=== PATIENT | male | born 1995 | race Caucasian/White ===

== ENCOUNTER → 2019-12-11 | Outpatient (CLI) | payer BC ==
[2019-12-11 12:22] LABS: BASOPHILS % (AUTO) 0 % (0-10); EOSINOPHILS % (AUTO) 0 % (0-10); HEMATOCRIT 46 % (40-54); HEMOGLOBIN 15.6 G/DL (13.3-17.7); LYMPHOCYTES % (AUTO) 13 % (12-44); MEAN CORPUSCULAR HEMOGLOBIN 28 PG (25-34); MEAN CORPUSCULAR HGB CONC 34 G/DL (32-36); MEAN CORPUSCULAR VOLUME 83 FL (80-99); MEAN PLATELET VOLUME 9.5 FL (7.4-10.4); MONOCYTES % (AUTO) 9 % (0-12); NEUTROPHILS # (AUTO) 9.5 X 10^3 (1.8-7.8); NEUTROPHILS % (AUTO) 78 % (42-75); PLATELET COUNT 291 10^3/uL (130-400); WHITE BLOOD COUNT 12.3 10^3/uL (4.3-11.0)
[2019-12-11 12:23] LABS: LYMPHOCYTES # (AUTO) 1.6 X 10^3 (1.0-4.0); MONOCYTES # (AUTO) 1.1 X 10^3 (0.0-1.0)
--- NOTE | 2019-12-11 12:42 | Diagnostic Imaging Report ---
PROCEDURE: CT abdomen and pelvis without contrast. TECHNIQUE: Multiple contiguous axial images were obtained through the abdomen and pelvis without the use of intravenous contrast. Auto Exposure Controls were utilized during the CT exam to meet ALARA standards for radiation dose reduction. INDICATION: Abdominal pain. COMPARISON: None. FINDINGS: The included portions of the lung bases are clear. CT ABDOMEN: A normal appendix is identified. The small bowel loops are nondistended. The kidneys, adrenal glands, spleen, pancreas, and liver have an unremarkable noncontrast CT appearance. There is no loculated fluid collection, free fluid, or free air within the abdomen. No abnormal mesenteric or retroperitoneal adenopathy is seen. The osseous structures show no acute abnormalities. CT PELVIS: The urinary bladder is unopacified and nondistended. No calculi are seen within the urinary bladder. There is no loculated fluid collection, free fluid, or free air within the pelvis. No abnormal lymph nodes are identified. The osseous structures show no acute abnormalities. IMPRESSION: Unremarkable noncontrast CT of the abdomen and pelvis. Dictated by: Dictated on workstation # [id number]
[2019-12-11 13:37] LABS: CHLORIDE 104 MMOL/L (98-107); POTASSIUM 3.9 MMOL/L (3.6-5.0); SODIUM 141 MMOL/L (135-145)
[2019-12-11 13:38] LABS: ALANINE AMINOTRANSFERASE 21 U/L (0-55); ALBUMIN 4.5 GM/DL (3.2-4.5); ALKALINE PHOSPHATASE 55 U/L (40-136); BILIRUBIN,TOTAL 0.3 MG/DL (0.1-1.0); BUN/CREATININE RATIO 10; CALCIUM 9.6 MG/DL (8.5-10.1); CARBON DIOXIDE 27 MMOL/L (21-32); CREATININE SERUM 0.99 MG/DL (0.60-1.30); GFR ESTIMATED > 60; GLUCOSE 90 MG/DL (70-105); TOTAL PROTEIN 7.1 GM/DL (6.4-8.2)
[2019-12-11 13:44] LABS: BAND NEUTROPHILS 0 %; BASOPHILS % (MANUAL) 0 %; EOSINOPHILS % (MANUAL) 1 %; LYMPHOCYTES % (MANUAL) 14 %; MONOCYTES % (MANUAL) 5 %; NEUTROPHILS % (MANUAL) 80 %
== END ==
LOC: RAD FS 11:50
PROVIDERS: ATTEND Nurse Practitioner Family
DX: R10.9 Unspecified abdominal pain (principal); R82.90 Unspecified abnormal findings in urine
CPT/HCPCS: 36415; 74176; 80053; 85007; 85027; 87088